=== PATIENT | female | born 2000 | race Native Hawaiian/Other Pacific Islander ===

== ENCOUNTER 2018-06-08 15:58 | Emergency (ER) | payer BC ==
[~2018-06-08] VITALS: Ht 152.4 cm; Wt 40.8 kg
[2018-06-08] MEDS ORDERED: ACID REDUCER20 MG PO (17:49)
[2018-06-08] MEDS ORDERED: ZOFRAN ODT4 MG PO (17:49)
== END 2018-06-08 18:55 | disposition home or self-care (01) ==
LOC: ED 15:58
DX: E86.0 Dehydration (principal); F41.9 Anxiety disorder, unspecified; K21.9 Gastro-esophageal reflux disease without esophagitis
CPT/HCPCS: 80053; 81001; 83690; 84703; 85025; 96361; 96374; 96375; 99284; G0480; J1200; J2060; J2405; J2765; J7030

== ENCOUNTER 2018-06-09 17:18 | Emergency (ER) | payer BC ==
[~2018-06-09] VITALS: Ht 152.4 cm; Wt 40.8 kg
[~2018-06-09 17:18] MED LIST: ACID REDUCER20 MG PO; ZOFRAN ODT4 MG PO
== END 2018-06-09 21:08 | disposition home or self-care (01) ==
LOC: ED 17:18
DX: K20.9 Esophagitis, unspecified (principal); F17.200 Nicotine dependence, unspecified, uncomplicated; Z79.899 Other long term (current) drug therapy
CPT/HCPCS: 80053; 81001; 83690; 85025; 96361; 96374; 96375; 99284; J2405; J2550; J7030